=== PATIENT | female | born 1945 | race Caucasian/White ===

== ENCOUNTER 2017-02-10 17:58 | Emergency (ER) | payer MEDICARE, MEDICAID ==
[~2017-02-10] VITALS: Ht 172.7 cm; Wt 90.7 kg
[~2017-02-10 17:58] MED LIST: ALLO300T2 PO; ASPI-991 PO; CALC-513 PO; IBUP-1096 PO; LEVO25TA9 PO; LORA2TAB PO; VALS160T2 PO
[2017-02-10] MEDS ORDERED: [UNRECOGNIZED DRUG - OTHER] PO (18:21)
[2017-02-10] MEDS ORDERED: CALC-1152 PO (18:21)
[2017-02-10] MEDS ORDERED: LOSA50TA21 PO (18:21)
[2017-02-10] MEDS ORDERED: NEBI10TA2 PO (18:21)
[2017-02-10] MEDS ORDERED: ATOR10TA PO (18:21)
[2017-02-10] MEDS ORDERED: METO-302 PO (18:21)
[2017-02-10] MEDS ORDERED: RANI150C4 PO (18:21)
--- NOTE | 2017-02-10 18:41 | NUR ---
pt is in room #2a. dr kiser evaluated the pt.
[2017-02-10] MEDS ORDERED: BENZONATATE 100 MG CAPSULE PO ONE (18:45)
[2017-02-10] MEDS ORDERED: ALBUTEROL SULFATE 2.5 MG/3 ML NEBU NEB ONE (18:45)
[2017-02-10] MEDS ORDERED: ALBUTEROL SULFATE 2.5 MG/3 ML NEBU ONE (19:02)
[2017-02-10] MEDS ORDERED: BENZONATATE 100 MG CAPSULE ONE (19:03)
--- NOTE | 2017-02-10 19:10 | NUR ---
Received report from FAUSTINA Childress. Assumed care of pt at this time. Pt finished breathing treatment. Sitting in position of comfort for self. Resp even and unlabored. Pt sts she is feeling slightly better. Pt denies pain at this time. Family at bedside.
--- NOTE | 2017-02-10 20:03 | NUR ---
Pt denies SOB, pt sts she is feeling better. Pt stable for discharge per MD. Pt and family given ACI. Both verbalized understanding of dc instructions. Pt ambulated out of er with steady gait
[2017-02-10 20:04] VITALS: BP 115/62
== END 2017-02-10 20:04 | disposition home or self-care (01) ==
LOC: ER 18:02
DX: J20.9 Acute bronchitis, unspecified (principal); I10 Essential (primary) hypertension; E78.5 Hyperlipidemia, unspecified; K21.9 Gastro-esophageal reflux disease without esophagitis; F41.9 Anxiety disorder, unspecified; Z79.82 Long term (current) use of aspirin
CPT/HCPCS: 71010; A4663

== ENCOUNTER 2020-10-14 11:16 | Inpatient (IN) | payer MEDICARE, OTHER ==
[~2020-10-14] VITALS: Ht 160 cm; Wt 97.5 kg
[~2020-10-14 11:16] MED LIST changes: -ASPI-991 PO; +ATOR10TA PO; +CALC-1194 PO; -IBUP-1096 PO; -LORA2TAB PO; +LOSA50TA39 PO; +METO-356 PO; +NEBI10TA2 PO; +RANI150C4 PO; -VALS160T2 PO; +[UNRECOGNIZED DRUG - OTHER] PO
--- NOTE | 2020-10-14 11:28 | NUR ---
PT IS IN ROOM #1B. DR BOOGIE EVALUATED THE PT.
[2020-10-14] MEDS ORDERED: DEXAMETHASONE SOD PHOSPHATE 4 MG INJ IV ONE (11:45)
[2020-10-14 11:49] LABS: BASOPHILS % (AUTO) 0.4 % (0.0-2.0); EOSINOPHILS # (AUTO) 0.1 K/uL (0.0-0.7); EOSINOPHILS % (AUTO) 0.8 % (0.0-7.0); HEMATOCRIT 41.8 % (31.2-41.9); HEMOGLOBIN 13.9 g/dL (10.9-14.3); LYMPHOCYTES # (AUTO) 1.6 K/uL (20.0-40.0); LYMPHOCYTES % (AUTO) 18.5 % (20.5-51.5); MEAN CORPUSCULAR HGB CONC 33 g/dL (32.3-35.6); MEAN CORPUSCULAR VOLUME 90.2 fL (75.5-95.3); MONOCYTES # (AUTO) 1.2 K/uL (2.0-10.0); MONOCYTES % (AUTO) 13.6 % (0.0-11.0); NEUTROPHILS # (AUTO) 5.8 K/uL (1.8-8.9); NEUTROPHILS % (AUTO) 66.7 % (38.5-71.5); PLATELET COUNT (AUTO) 342 K/uL (179-408); RED BLOOD CELL COUNT(AUTO) 4.64 MIL/uL (3.63-4.92); WHITE BLOOD COUNT (AUTO) 8.6 K/uL (3.8-11.8)
[2020-10-14 11:57] LABS: CARBON DIOXIDE 24 mmol/L (21-32); CHLORIDE 100 mmol/L (98-107); CREATININE 1.7 mg/dL (0.6-1.3); GLUCOSE 144 mg/dL (74-106); POTASSIUM 4.2 mmol/L (3.5-5.1); UREA NITROGEN, BLOOD 32 mg/dL (7-18)
[2020-10-14] MEDS ORDERED: DEXAMETHASONE SOD PHOSPHATE 10 MG INJ ONE (12:13)
[2020-10-14 12:14] LABS: ALANINE AMINOTRANSFERASE 23 U/L (14-59); ALKALINE PHOSPHATASE 42 U/L (50-136); ASPARTATE AMINOTRANSFERASE 30 U/L (15-37); BILIRUBIN,TOTAL 0.5 mg/dL (0.2-1.0); FERRITIN 429 ng/mL (8-252); LACTATE DEHYDROGENASE 280 U/L (81-234)
[2020-10-14 12:26] LABS: CREATINE KINASE, TOTAL 26 U/L (26-192)
[2020-10-14] MEDS ORDERED: CEFTRIAXONE 1 G in IV DEXTROSE 5% 50 ML IV ONE (12:30)
[2020-10-14] MEDS ORDERED: AZITHROMYCIN IV 500 MG in IV DEXTROSE 5% 250 ML IV ONE (12:30)
[2020-10-14] MEDS ORDERED: CEFTRIAXONE /D5W 50ML IVPB **ER PYXIS IV ONE (12:37)
[2020-10-14] MEDS ORDERED: AZITHROMYCIN 500MG/ D5W 250ML IVPB **ER PYXIS ONLY IV ONE (12:37)
--- NOTE | 2020-10-14 14:00 | NUR ---
Received report from ER nurse on pt. Pt transferring to room 320 Addendum: 10/14/20 at 3334 by EDEN ANN RN report received at [id number]*
[2020-10-14] MEDS ORDERED: ALBUTEROL SULFATE 8 GM HFA.AER.AD IH PRN (15:15)
[2020-10-14] MEDS ORDERED: hydrALAZINE HCL 25 MG TABLET PO PRN (15:15)
[2020-10-14] MEDS ORDERED: ONDANSETRON 4 MG/2 ML VIAL IV PRN (15:15)
[2020-10-14] MEDS ORDERED: MORPHINE SULFATE 2 MG/1 ML DISP.SYRIN IV PRN (15:15)
[2020-10-14] MEDS ORDERED: ACETAMINOPHEN 325 MG TABLET PO PRN (15:15)
[2020-10-14 16:08] VITALS: BP 130/73
--- NOTE | 2020-10-14 16:15 | NUR ---
received pt from ER. Pt primary language is Farsi, pt does understand some [place], Daughter (Cody) number posted in room if needed. Pt on 3L O2 via NC saturating at 97%, no signs of distress at this time, no pain reported. Pt has IV access on the left AC, intact and patent. Pt is awake alert and oriented x4. all belongings accounted for and logged in the chart. Pt in bed resting, bed in low and locked position, safety and isolation precautions in place. Will endorse to oncoming nurse.
[2020-10-14] MEDS: IV NS 1000 ML 1,000 ML IV PRN ×2 (19:08→19:11)
[2020-10-14 19:52] VITALS: BP 104/51
[2020-10-14] MEDS: DOCUSATE SODIUM 100 MG CAPSULE PO SCH (21:00)
[2020-10-14] MEDS: ATORVASTATIN 10 MG TABLET PO SCH (21:00)
--- NOTE | 2020-10-14 22:45 | NUR ---
Patient awake ALOx4 farsi speaking with O2 at 3 LPM via NC saturating at 94%.No s/s of distress noted.IV on left Ac with NS running at 60ml/hr.Tolerated well.Due meds given. Patient c/o unable to sleep ,requesting for sleeping med.Dr Lynch made aware with new order given noted and carried out. Restoril 15 mg given. Maintain isolation precaution for covid.Call light with in reach. Will continue to monitor
[2020-10-14] MEDS: TEMAZEPAM 15 MG CAPSULE PO SCH (22:55)
[2020-10-15 00:50] VITALS: BP 97/52
[2020-10-15 04:17] VITALS: BP 107/56
[2020-10-15] MEDS: PANTOPRAZOLE SODIUM 40 MG TABLET.DR PO SCH (06:04)
[2020-10-15] MEDS: LEVOTHYROXINE SODIUM 25 MCG TABLET PO SCH (06:30)
[2020-10-15 07:23] LABS: ALANINE AMINOTRANSFERASE 17 U/L (14-59); ALKALINE PHOSPHATASE 39 U/L (50-136); ASPARTATE AMINOTRANSFERASE 23 U/L (15-37); BILIRUBIN,TOTAL 0.4 mg/dL (0.2-1.0); CARBON DIOXIDE 24 mmol/L (21-32); CHLORIDE 103 mmol/L (98-107); CHOLESTEROL 115 mg/dL (<200); CREATININE 1.6 mg/dL (0.6-1.3); GLUCOSE 227 mg/dL (74-106); HDL CHOLESTEROL 31 mg/dL (40-60); MAGNESIUM 2.2 mg/dL (1.8-2.4); PHOSPHOROUS 3.6 mg/dL (2.5-4.9); TOTAL PROTEIN, SERUM 7.2 g/dL (6.4-8.2); TRIGLYCERIDES 44 MG/DL (30-150); URIC ACID 9.5 mg/dL (2.6-6.0)
--- NOTE | 2020-10-15 07:30 | NUR ---
received report on pt, pt in bed resting. awake alert and oriented x4, pt is Farsi speaking, NSR on tele monitor, 3L O2 via NC saturating at 94%. bed in low fowlers position, call light within reach. IV access on the left AC IVF NS infusing at 60cc. Bed in low and locked position, safety and isolation precautions in place. Will continue to monitor.
[2020-10-15 07:52] LABS: UREA NITROGEN, BLOOD 38 mg/dL (7-18)
[2020-10-15 08:58] LABS: THYROID STIMULATING HORMONE 0.675 mIU/mL (0.358-3.740)
[2020-10-15] MEDS ORDERED: LOSARTAN POTASSIUM 50 MG TABLET PO SCH (09:00)
[2020-10-15] MEDS ORDERED: METOPROLOL SUCCINATE XL 25 MG TAB.SR.24H PO SCH (09:00)
[2020-10-15] MEDS ORDERED: DEXAMETHASONE SOD PHOSPHATE 4 MG INJ IV SCH (09:00)
[2020-10-15] MEDS ORDERED: ALLOPURINOL 300 MG TABLET PO SCH (09:00)
[2020-10-15 09:46] LABS: BASOPHILS # (AUTO) 0.1 K/uL (0.0-8.0); BASOPHILS % (AUTO) 0.7 % (0.0-2.0); HEMATOCRIT 38.9 % (31.2-41.9); HEMOGLOBIN 12.9 g/dL (10.9-14.3); LYMPHOCYTES # (AUTO) 1.6 K/uL (20.0-40.0); LYMPHOCYTES % (AUTO) 19.8 % (20.5-51.5); MEAN CORPUSCULAR HEMOGLOBIN 30.1 uug (24.7-32.8); MEAN CORPUSCULAR HGB CONC 33 g/dL (32.3-35.6); MEAN CORPUSCULAR VOLUME 91.1 fL (75.5-95.3); MONOCYTES # (AUTO) 0.9 K/uL (2.0-10.0); MONOCYTES % (AUTO) 11.1 % (0.0-11.0); NEUTROPHILS # (AUTO) 5.4 K/uL (1.8-8.9); NEUTROPHILS % (AUTO) 68.4 % (38.5-71.5); PLATELET COUNT (AUTO) 312 K/uL (179-408); RED BLOOD CELL COUNT(AUTO) 4.27 MIL/uL (3.63-4.92); WHITE BLOOD COUNT (AUTO) 7.9 K/uL (3.8-11.8)
[2020-10-15] MEDS ORDERED: REMDESIVIR (CHARGED) 200 MG in IV NORMAL SALINE 210 ML IV ONE (10:00)
[2020-10-15] MEDS: CHOLECALCIFEROL 1,000 UNIT TABLET PO SCH (10:34)
[2020-10-15] MEDS: CALCIUM CITRA-VITAMIN D 315 MG-250 UNITS TABLET PO SCH (10:34)
[2020-10-15] MEDS: ASCORBIC ACID 500 MG TABLET PO SCH (10:34)
[2020-10-15] MEDS: DEXAMETHASONE SOD PHOSPHATE 4 MG INJ IV SCH (10:34)
[2020-10-15] MEDS: ENOXAPARIN SODIUM 30 MG/0.3 ML DISP.SYRIN SUBCUT SCH (10:43)
[2020-10-15 11:40] VITALS: BP 115/56
[2020-10-15] MEDS ORDERED: DEXTROSE 50% 50 ML DISP.SYRIN IV PRN (12:30)
[2020-10-15] MEDS: AZITHROMYCIN IV 500 MG in IV DEXTROSE 5% 250 ML IV SCH (13:48)
[2020-10-15] MEDS: CEFTRIAXONE 1 G in IV DEXTROSE 5% 50 ML IV SCH (15:07)
[2020-10-15 16:00] VITALS: BP 112/56
--- NOTE | 2020-10-15 17:00 | NUR ---
Pt glucose reading is 257, pt refused insulin.
[2020-10-15] MEDS: BLOOD SUGAR DIAGNOSTIC 1 EACH STRIP VI SCH ×2 (17:17→21:14)
[2020-10-15] MEDS: INSULIN REGULAR, HUMAN 300 UNIT/3 ML VIAL SQ PRN ×2 (17:21→21:22)
[2020-10-15] MEDS: IV NS 1000 ML 1,000 ML IV PRN (17:44)
--- NOTE | 2020-10-15 19:08 | NUR ---
pt awake alert and oriented x4, Farsi speaking. Bed in semi fowlers position, mediations given as ordered. NSR on tele monitor, pt on 3L O2 via NC saturating at 94%, no signs of distress noted, no pain reported at this time. IV access on the left AC, IVF infusing NS at 60cc. Bed in low and locked position, call light within reach, safety, and isolation precautions in place. Will endorse to oncoming nurse.
[2020-10-15] MEDS: TEMAZEPAM 15 MG CAPSULE PO SCH (21:10)
[2020-10-15] MEDS: ATORVASTATIN 10 MG TABLET PO SCH (21:10)
[2020-10-15] MEDS: DOCUSATE SODIUM 100 MG CAPSULE PO SCH (21:11)
[2020-10-15 21:52] VITALS: BP 113/48
[2020-10-16 01:11] VITALS: BP 98/47
[2020-10-16 06:13] VITALS: BP 109/47
[2020-10-16] MEDS: PANTOPRAZOLE SODIUM 40 MG TABLET.DR PO SCH (06:54)
[2020-10-16] MEDS: LEVOTHYROXINE SODIUM 25 MCG TABLET PO SCH (06:54)
--- NOTE | 2020-10-16 07:03 | NUR ---
End of Shift: Patient slept most of the night. AOx4, Farsi speaking. Bed in semi fowlers position, mediations given as ordered, pt refused their insulin injection during the shift. NSR on tele monitor, pt on 3L O2 via NC saturating at 100%, no signs of distress noted, no pain reported at this time. IV access on the right forearm intact, IVF infusing NS at 60cc. Bed in low and locked position, call light within reach, safety, and isolation precautions in place. Will endorse to the day shift nurse.
[2020-10-16 07:26] LABS: BASOPHILS % (AUTO) 0.3 % (0.0-2.0); HEMATOCRIT 36.5 % (31.2-41.9); HEMOGLOBIN 12.2 g/dL (10.9-14.3); LYMPHOCYTES # (AUTO) 1.6 K/uL (20.0-40.0); LYMPHOCYTES % (AUTO) 12.8 % (20.5-51.5); MEAN CORPUSCULAR HEMOGLOBIN 30.8 uug (24.7-32.8); MEAN CORPUSCULAR HGB CONC 34 g/dL (32.3-35.6); MONOCYTES # (AUTO) 0.9 K/uL (2.0-10.0); MONOCYTES % (AUTO) 7.7 % (0.0-11.0); NEUTROPHILS # (AUTO) 9.7 K/uL (1.8-8.9); NEUTROPHILS % (AUTO) 79.2 % (38.5-71.5); PLATELET COUNT (AUTO) 308 K/uL (179-408); RED BLOOD CELL COUNT(AUTO) 3.97 MIL/uL (3.63-4.92); WHITE BLOOD COUNT (AUTO) 12.2 K/uL (3.8-11.8)
[2020-10-16] MEDS: BLOOD SUGAR DIAGNOSTIC 1 EACH STRIP VI SCH ×4 (07:30→21:01)
[2020-10-16 07:57] LABS: CARBON DIOXIDE 25 mmol/L (21-32); CHLORIDE 104 mmol/L (98-107); CREATININE 1.8 mg/dL (0.6-1.3); GLUCOSE 184 mg/dL (74-106); MAGNESIUM 1.9 mg/dL (1.8-2.4); POTASSIUM 4.6 mmol/L (3.5-5.1); UREA NITROGEN, BLOOD 42 mg/dL (7-18)
--- NOTE | 2020-10-16 08:00 | NUR ---
pt blood sugar is 171 pt refused the insulin sliding scale per orders made aware
[2020-10-16] MEDS: CHOLECALCIFEROL 1,000 UNIT TABLET PO SCH (08:32)
[2020-10-16] MEDS: ASCORBIC ACID 500 MG TABLET PO SCH (08:32)
[2020-10-16] MEDS: CALCIUM CITRA-VITAMIN D 315 MG-250 UNITS TABLET PO SCH (08:32)
[2020-10-16] MEDS: ENOXAPARIN SODIUM 30 MG/0.3 ML DISP.SYRIN SUBCUT SCH (08:34)
[2020-10-16] MEDS: DEXAMETHASONE SOD PHOSPHATE 4 MG INJ IV SCH (08:46)
[2020-10-16 08:55] LABS: BILIRUBIN,DIRECT 0.1 mg/dL (0.0-0.2); BILIRUBIN,TOTAL 0.2 mg/dL (0.2-1.0); TOTAL PROTEIN, SERUM 6.9 g/dL (6.4-8.2)
[2020-10-16] MEDS: REMDESIVIR (CHARGED) 100 MG in IV NORMAL SALINE 100 ML IV SCH (10:06)
[2020-10-16] MEDS: IV NS 1000 ML 1,000 ML IV PRN (10:17)
[2020-10-16] MEDS: INSULIN REGULAR, HUMAN 300 UNIT/3 ML VIAL SQ PRN ×3 (11:17→21:03)
[2020-10-16 11:59] VITALS: BP 116/64
[2020-10-16] MEDS: AZITHROMYCIN IV 500 MG in IV DEXTROSE 5% 250 ML IV SCH (12:22)
[2020-10-16] MEDS: CEFTRIAXONE 1 G in IV DEXTROSE 5% 50 ML IV SCH (13:12)
[2020-10-16 16:00] VITALS: BP 107/62
[2020-10-16 18:19] LABS: *BILIRUBIN,URIN NEGATIVE (NEGATIVE); *BLOOD, URINE NEGATIVE (NEGATIVE); *CLARITY,URINE CLEAR (CLEAR); *COLOR,URINE YELLOW (YELLOW); *KETONES,URINE NEGATIVE (NEGATIVE); *UROBILINOGEN,URINE 0.2 E.U./dl (NORMAL); LEUKOCYTE ESTERASE ,URINE NEGATIVE (NEGATIVE); NITRITE, URINE NEGATIVE (NEGATIVE); PH,URINE 5.5 (5.0-8.0); UGLUCOSE NEGATIVE (NEGATIVE)
[2020-10-16 18:26] LABS: BACTERIA,URINE FEW /HPF (NONE SEEN); RBC,URINE 0-3 /HPF (0-3); SQUAMOUS EPITHELIAL CELL,UR FEW /HPF (NONE SEEN); YEAST,URINE FEW /HPF (NONE SEEN)
[2020-10-16 18:30] LABS: *CREATININE,URINE 93.5 mg/dL (30-125); *URINE TOTAL PROTEIN RANDOM 38.2 mg/dL (<150/24HR)
[2020-10-16 20:03] VITALS: BP 131/71
[2020-10-16] MEDS: ATORVASTATIN 10 MG TABLET PO SCH (20:56)
[2020-10-16] MEDS: TEMAZEPAM 15 MG CAPSULE PO SCH (20:56)
[2020-10-16] MEDS: DOCUSATE SODIUM 100 MG CAPSULE PO SCH (20:56)
--- NOTE | 2020-10-16 21:20 | NUR ---
RECEIVED PATIENT AWAKE. NOT IN DISTRESS AND NOTED WITH OXYGEN VIA NASAL CANNULA AT 2LPM. NO C/O PAIN MADE BY HER. MAINLY FARSI SPEAKING BUT ABLE TO MAKE NEEDS KNOWN. BLOOD SUGAR CHECK AND COVERAGE GIVEN. IV LINE ON RFA INTACT WITH NS RUNNING AT 50CC/HR. SAFETY AND ISOLATION PRECAUTION IN PLACE.CALL LIGHT IN HAND.WILL CONTINUE WITH MONITORING.
[2020-10-17 00:15] VITALS: BP 137/67
[2020-10-17 04:42] VITALS: BP 128/73
[2020-10-17] MEDS: BLOOD SUGAR DIAGNOSTIC 1 EACH STRIP VI SCH ×4 (06:31→20:21)
[2020-10-17] MEDS: PANTOPRAZOLE SODIUM 40 MG TABLET.DR PO SCH (06:31)
[2020-10-17] MEDS: LEVOTHYROXINE SODIUM 25 MCG TABLET PO SCH (06:31)
[2020-10-17 06:46] LABS: BASOPHILS # (AUTO) 0.1 K/uL (0.0-8.0); BASOPHILS % (AUTO) 0.7 % (0.0-2.0); EOSINOPHILS % (AUTO) 0.2 % (0.0-7.0); HEMATOCRIT 37.1 % (31.2-41.9); HEMOGLOBIN 12.2 g/dL (10.9-14.3); LYMPHOCYTES # (AUTO) 1.7 K/uL (20.0-40.0); LYMPHOCYTES % (AUTO) 15.2 % (20.5-51.5); MEAN CORPUSCULAR HEMOGLOBIN 30.3 uug (24.7-32.8); MEAN CORPUSCULAR HGB CONC 33 g/dL (32.3-35.6); MEAN CORPUSCULAR VOLUME 92.1 fL (75.5-95.3); MONOCYTES # (AUTO) 1.3 K/uL (2.0-10.0); MONOCYTES % (AUTO) 12.1 % (0.0-11.0); NEUTROPHILS # (AUTO) 7.9 K/uL (1.8-8.9); NEUTROPHILS % (AUTO) 71.8 % (38.5-71.5); PLATELET COUNT (AUTO) 322 K/uL (179-408); RED BLOOD CELL COUNT(AUTO) 4.03 MIL/uL (3.63-4.92); WHITE BLOOD COUNT (AUTO) 11.1 K/uL (3.8-11.8)
--- NOTE | 2020-10-17 06:58 | NUR ---
PATIENT IN BED AND SLEPT WELL THROUGH THE NIGHT.ABLE TO SELF TURN. ALL DUE MEDICATIONS GIVEN. SAFETY AND ISOLATION PRECAUTIONS OBSERVED. WILL CONTINUE WITH POC.
[2020-10-17 07:20] LABS: ALANINE AMINOTRANSFERASE 25 U/L (14-59); ALKALINE PHOSPHATASE 42 U/L (50-136); ASPARTATE AMINOTRANSFERASE 25 U/L (15-37); BILIRUBIN,DIRECT 0.1 mg/dL (0.0-0.2); BILIRUBIN,TOTAL 0.2 mg/dL (0.2-1.0); CHLORIDE 104 mmol/L (98-107); CREATININE 1.6 mg/dL (0.6-1.3); GLUCOSE 129 mg/dL (74-106); LACTATE DEHYDROGENASE 293 U/L (81-234); MAGNESIUM 1.9 mg/dL (1.8-2.4); PHOSPHOROUS 3.5 mg/dL (2.5-4.9); POTASSIUM 4.5 mmol/L (3.5-5.1); TOTAL PROTEIN, SERUM 6.8 g/dL (6.4-8.2); UREA NITROGEN, BLOOD 39 mg/dL (7-18)
[2020-10-17 07:24] LABS: CARBON DIOXIDE 22 mmol/L (21-32)
--- NOTE | 2020-10-17 08:00 | NUR ---
AWAKE ALERT AND ORIENTED X3 NO SS OF PAIN OR SOB WITH 2L O2 NC SATURATING 94%, DENIES PAIN. WILL CONTINUE PLAN OF CARE FOR IV ANTIBIOTIC. NO ALLERGY REACTION NOTED
[2020-10-17] MEDS: CALCIUM CITRA-VITAMIN D 315 MG-250 UNITS TABLET PO SCH (08:40)
[2020-10-17] MEDS: ASCORBIC ACID 500 MG TABLET PO SCH (08:41)
[2020-10-17] MEDS: GLIMEPIRIDE 2 MG TABLET PO SCH (08:41)
[2020-10-17] MEDS: CHOLECALCIFEROL 1,000 UNIT TABLET PO SCH (08:41)
[2020-10-17] MEDS: ENOXAPARIN SODIUM 30 MG/0.3 ML DISP.SYRIN SUBCUT SCH (08:42)
[2020-10-17] MEDS: DEXAMETHASONE SOD PHOSPHATE 4 MG INJ IV SCH (08:42)
[2020-10-17] MEDS: REMDESIVIR (CHARGED) 100 MG in IV NORMAL SALINE 100 ML IV SCH (09:11)
[2020-10-17 11:32] VITALS: BP 123/55
[2020-10-17] MEDS: INSULIN REGULAR, HUMAN 300 UNIT/3 ML VIAL SQ PRN ×3 (12:24→20:32)
[2020-10-17] MEDS: IV NS 1000 ML 1,000 ML IV PRN (12:29)
--- NOTE | 2020-10-17 13:00 | NUR ---
SEEN BY DR KENNEDY FOR PULMONARY FOLLOW-UP SEE NOTES
--- NOTE | 2020-10-17 14:46 | NUR ---
midline insertion done at bedside on the right upper arm #18
[2020-10-17 16:00] VITALS: BP 116/51
[2020-10-17] MEDS: TEMAZEPAM 15 MG CAPSULE PO SCH (20:09)
[2020-10-17] MEDS: DOCUSATE SODIUM 100 MG CAPSULE PO SCH (20:09)
[2020-10-17] MEDS: ATORVASTATIN 10 MG TABLET PO SCH (20:09)
[2020-10-17 20:12] VITALS: BP 108/51
[2020-10-18 00:18] VITALS: BP 108/53
[2020-10-18 05:04] VITALS: BP 108/48
[2020-10-18] MEDS: PANTOPRAZOLE SODIUM 40 MG TABLET.DR PO SCH (06:37)
[2020-10-18] MEDS: LEVOTHYROXINE SODIUM 25 MCG TABLET PO SCH (06:37)
[2020-10-18] MEDS: BLOOD SUGAR DIAGNOSTIC 1 EACH STRIP VI SCH ×4 (06:56→20:39)
[2020-10-18] MEDS: IV NS 1000 ML 1,000 ML IV PRN (06:56)
[2020-10-18 07:05] LABS: BASOPHILS # (AUTO) 0.1 K/uL (0.0-8.0); BASOPHILS % (AUTO) 0.6 % (0.0-2.0); EOSINOPHILS % (AUTO) 0.1 % (0.0-7.0); HEMATOCRIT 35.4 % (31.2-41.9); HEMOGLOBIN 11.8 g/dL (10.9-14.3); LYMPHOCYTES # (AUTO) 2.2 K/uL (20.0-40.0); LYMPHOCYTES % (AUTO) 19.1 % (20.5-51.5); MEAN CORPUSCULAR HEMOGLOBIN 30.6 uug (24.7-32.8); MEAN CORPUSCULAR HGB CONC 33 g/dL (32.3-35.6); MEAN CORPUSCULAR VOLUME 92.2 fL (75.5-95.3); MONOCYTES # (AUTO) 1.6 K/uL (2.0-10.0); MONOCYTES % (AUTO) 13.4 % (0.0-11.0); NEUTROPHILS # (AUTO) 7.7 K/uL (1.8-8.9); NEUTROPHILS % (AUTO) 66.8 % (38.5-71.5); PLATELET COUNT (AUTO) 328 K/uL (179-408); RED BLOOD CELL COUNT(AUTO) 3.84 MIL/uL (3.63-4.92); WHITE BLOOD COUNT (AUTO) 11.6 K/uL (3.8-11.8)
[2020-10-18] MEDS: GLIMEPIRIDE 2 MG TABLET PO SCH (07:21)
--- NOTE | 2020-10-18 07:22 | NUR ---
AMARYL NOT GIVEN DUE TO BLOOD SUGAR OF 62.
[2020-10-18 07:25] LABS: ALANINE AMINOTRANSFERASE 29 U/L (14-59); ALKALINE PHOSPHATASE 38 U/L (50-136); ASPARTATE AMINOTRANSFERASE 23 U/L (15-37); BILIRUBIN,DIRECT 0.1 mg/dL (0.0-0.2); BILIRUBIN,TOTAL 0.3 mg/dL (0.2-1.0); CARBON DIOXIDE 25 mmol/L (21-32); CHLORIDE 105 mmol/L (98-107); CREATININE 1.5 mg/dL (0.6-1.3); GLUCOSE 68 mg/dL (74-106); POTASSIUM 4.3 mmol/L (3.5-5.1); TOTAL PROTEIN, SERUM 6.4 g/dL (6.4-8.2)
[2020-10-18 07:38] LABS: UREA NITROGEN, BLOOD 37 mg/dL (7-18)
--- NOTE | 2020-10-18 08:00 | NUR ---
PATIENT AWAKE ALERT AND ORIENTED X3, COMMUNICATES WELL WITH STAFF IN ALL HER NEEDS, NO SS OF PAIN OR DISTRESS WITH 2L NC SATURATING 95%. NO SS O0F HYPOGLYCEMIA
[2020-10-18 08:04] LABS: MAGNESIUM 1.8 mg/dL (1.8-2.4); PHOSPHOROUS 3.9 mg/dL (2.5-4.9)
[2020-10-18] MEDS: DEXAMETHASONE SOD PHOSPHATE 4 MG INJ IV SCH (08:54)
[2020-10-18] MEDS: CHOLECALCIFEROL 1,000 UNIT TABLET PO SCH (08:55)
[2020-10-18] MEDS: ASCORBIC ACID 500 MG TABLET PO SCH (08:55)
[2020-10-18] MEDS: ENOXAPARIN SODIUM 30 MG/0.3 ML DISP.SYRIN SUBCUT SCH (08:55)
[2020-10-18] MEDS: CALCIUM CITRA-VITAMIN D 315 MG-250 UNITS TABLET PO SCH (08:55)
[2020-10-18] MEDS: REMDESIVIR (CHARGED) 100 MG in IV NORMAL SALINE 100 ML IV SCH (09:37)
[2020-10-18 11:35] VITALS: BP 135/64
[2020-10-18 11:50] LABS: LYMPHOCYTES % (MANUAL) 21 % (20-40); MONOCYTES % (MANUAL) 12 % (2-10); NEUTROPHILS % (MANUAL) 67 % (42-75)
--- NOTE | 2020-10-18 14:51 | NUR ---
SEEN BY DR MILAN PLAN IS TO DISCHARGE PATIENT AFTER LAST DOSE OF ANTIBIOTIC
[2020-10-18 16:00] VITALS: BP 149/83
[2020-10-18] MEDS: INSULIN REGULAR, HUMAN 300 UNIT/3 ML VIAL SQ PRN ×2 (17:07→20:41)
[2020-10-18 20:16] VITALS: BP 118/60
[2020-10-18] MEDS: DOCUSATE SODIUM 100 MG CAPSULE PO SCH (20:30)
[2020-10-18] MEDS: ATORVASTATIN 10 MG TABLET PO SCH (20:30)
[2020-10-18] MEDS: TEMAZEPAM 15 MG CAPSULE PO SCH (21:42)
--- NOTE | 2020-10-18 22:00 | NUR ---
PATIENT ALERT ORIENTED, NO SOB NO CHEST PAIN, PATIENT AMBULATORY, BRP, CALL LIGHT WITHIN REACH. PATIENT COOPERATIVE WITH CARE, NO S/S OF HYPO/HYPERGYLCEMIA NOTED. AFEBRILE, CONT TO MONITOR.
[2020-10-19] MEDS: IV NS 1000 ML 1,000 ML IV PRN ×2 (02:37→22:13)
[2020-10-19 04:12] VITALS: BP 103/41
[2020-10-19] MEDS: PANTOPRAZOLE SODIUM 40 MG TABLET.DR PO SCH (06:29)
[2020-10-19] MEDS: LEVOTHYROXINE SODIUM 25 MCG TABLET PO SCH (06:29)
[2020-10-19] MEDS: BLOOD SUGAR DIAGNOSTIC 1 EACH STRIP VI SCH ×4 (06:30→20:57)
--- NOTE | 2020-10-19 07:03 | NUR ---
PATIENT ALERT ORIENTED, NO SOB NO CHEST PAIN. PATIENT REMAINS ON DROPLET PRECAUTION, AFEBRILE, CONT TO MONITOR BLOOD SUGAR, PATIENT BRP CALL LIGHT WITHIN REACH. CONT TO MONITOR.
--- NOTE | 2020-10-19 07:30 | NUR ---
Received patient awake, alert and oriented times 4. No sign of respiratory distress noted. Patient is currently on room air. Skin is intact. Safety precautions are in place. Will continue to monitor.
[2020-10-19 07:34] LABS: BASOPHILS # (AUTO) 0.1 K/uL (0.0-8.0); BASOPHILS % (AUTO) 0.8 % (0.0-2.0); EOSINOPHILS % (AUTO) 0.3 % (0.0-7.0); HEMATOCRIT 36.2 % (31.2-41.9); LYMPHOCYTES # (AUTO) 2.4 K/uL (20.0-40.0); LYMPHOCYTES % (AUTO) 19.7 % (20.5-51.5); MEAN CORPUSCULAR HGB CONC 33 g/dL (32.3-35.6); MEAN CORPUSCULAR VOLUME 93.7 fL (75.5-95.3); MONOCYTES # (AUTO) 1.5 K/uL (2.0-10.0); MONOCYTES % (AUTO) 12.4 % (0.0-11.0); NEUTROPHILS # (AUTO) 8.2 K/uL (1.8-8.9); NEUTROPHILS % (AUTO) 66.8 % (38.5-71.5); PLATELET COUNT (AUTO) 316 K/uL (179-408); RED BLOOD CELL COUNT(AUTO) 3.86 MIL/uL (3.63-4.92); WHITE BLOOD COUNT (AUTO) 12.3 K/uL (3.8-11.8)
[2020-10-19 07:46] LABS: BILIRUBIN,DIRECT 0.1 mg/dL (0.0-0.2); CARBON DIOXIDE 22 mmol/L (21-32); CHLORIDE 105 mmol/L (98-107); CREATININE 1.5 mg/dL (0.6-1.3); GLUCOSE 97 mg/dL (74-106); POTASSIUM 4.5 mmol/L (3.5-5.1); UREA NITROGEN, BLOOD 35 mg/dL (7-18)
[2020-10-19 08:03] LABS: ALANINE AMINOTRANSFERASE 30 U/L (14-59); ALKALINE PHOSPHATASE 44 U/L (50-136); ASPARTATE AMINOTRANSFERASE 22 U/L (15-37); BILIRUBIN,TOTAL 0.3 mg/dL (0.2-1.0); TOTAL PROTEIN, SERUM 6.2 g/dL (6.4-8.2)
[2020-10-19] MEDS: GLIMEPIRIDE 2 MG TABLET PO SCH (08:45)
[2020-10-19] MEDS: ASCORBIC ACID 500 MG TABLET PO SCH (08:45)
[2020-10-19] MEDS: CHOLECALCIFEROL 1,000 UNIT TABLET PO SCH (08:45)
[2020-10-19] MEDS: CALCIUM CITRA-VITAMIN D 315 MG-250 UNITS TABLET PO SCH (08:45)
[2020-10-19] MEDS: DEXAMETHASONE SOD PHOSPHATE 4 MG INJ IV SCH (08:46)
[2020-10-19] MEDS: ENOXAPARIN SODIUM 30 MG/0.3 ML DISP.SYRIN SUBCUT SCH (08:47)
[2020-10-19] MEDS ORDERED: GLIM2TAB PO (11:01)
[2020-10-19] MEDS: REMDESIVIR (CHARGED) 100 MG in IV NORMAL SALINE 100 ML IV SCH (11:04)
--- NOTE | 2020-10-19 11:16 | NUR ---
Patient just began final bag of Remdisivir. Will continue to monitor.
[2020-10-19 12:00] VITALS: BP 142/64
[2020-10-19] MEDS: INSULIN REGULAR, HUMAN 300 UNIT/3 ML VIAL SQ PRN ×3 (12:31→20:55)
[2020-10-19 16:08] VITALS: BP 130/73
[2020-10-19 20:20] VITALS: BP 123/64
[2020-10-19] MEDS: DOCUSATE SODIUM 100 MG CAPSULE PO SCH (20:46)
[2020-10-19] MEDS: ATORVASTATIN 10 MG TABLET PO SCH (20:46)
[2020-10-19] MEDS: TEMAZEPAM 15 MG CAPSULE PO SCH (20:47)
[2020-10-20] MEDS: LEVOTHYROXINE SODIUM 25 MCG TABLET PO SCH (06:16)
[2020-10-20] MEDS: PANTOPRAZOLE SODIUM 40 MG TABLET.DR PO SCH (06:16)
[2020-10-20] MEDS: BLOOD SUGAR DIAGNOSTIC 1 EACH STRIP VI SCH ×2 (06:17→10:37)
[2020-10-20] MEDS: GLIMEPIRIDE 2 MG TABLET PO SCH (07:55)
[2020-10-20] MEDS: CHOLECALCIFEROL 1,000 UNIT TABLET PO SCH (07:56)
[2020-10-20] MEDS: ENOXAPARIN SODIUM 30 MG/0.3 ML DISP.SYRIN SUBCUT SCH (07:56)
[2020-10-20] MEDS: ASCORBIC ACID 500 MG TABLET PO SCH (07:56)
[2020-10-20] MEDS: CALCIUM CITRA-VITAMIN D 315 MG-250 UNITS TABLET PO SCH (07:56)
[2020-10-20] MEDS: DEXAMETHASONE SOD PHOSPHATE 4 MG INJ IV SCH (08:18)
[2020-10-20 11:57] VITALS: BP 132/67
--- NOTE | 2020-10-20 15:00 | NUR ---
dc orders received noted and carried out,dc heplock per md orders,dc instruction and education given to the pt,pt said she will follow up with her pcp .pt left the facility via private car in stable condition
== END 2020-10-20 15:00 | disposition home or self-care (01) | DRG 177 ==
LOC: ER 11:16 → TELE3 15:04 → MEDSURG3 10-18 11:20
PROVIDERS: ADMIT Internal Medicine
PROC: XW033E5 Introduction of Remdesivir Anti-infective into Peripheral Vein, Percutaneous Approach, New Technology Group 5 (ICD-10-PCS; principal; 2020-10-15)
PROC: 05H533Z Insertion of Infusion Device into Right Subclavian Vein, Percutaneous Approach (ICD-10-PCS; 2020-10-17)
PROC: B546ZZA Ultrasonography of Right Subclavian Vein, Guidance (ICD-10-PCS; 2020-10-17)
DX: U07.1 COVID-19 (principal); J12.82 Pneumonia due to coronavirus disease 2019; J96.01 Acute respiratory failure with hypoxia; N17.0 Acute kidney failure with tubular necrosis; D68.69 Other thrombophilia; E44.0 Moderate protein-calorie malnutrition; E22.2 Syndrome of inappropriate secretion of antidiuretic hormone; E78.5 Hyperlipidemia, unspecified; N18.9 Chronic kidney disease, unspecified; I13.10 Hypertensive heart and chronic kidney disease without heart failure, with stage 1 through stage 4 chronic kidney disease, or unspecified chronic kidney disease; E03.9 Hypothyroidism, unspecified; F41.9 Anxiety disorder, unspecified; K21.9 Gastro-esophageal reflux disease without esophagitis; E11.22 Type 2 diabetes mellitus with diabetic chronic kidney disease; Z68.38 Body mass index [BMI] 38.0-38.9, adult; M89.9 Disorder of bone, unspecified; Z96.652 Presence of left artificial knee joint
CPT/HCPCS: 36415; 70030-TC; 71045; 76770; 83605; 83615; 83735; 84100; 84156; 84300; 84443; 84550; 85025; 85610; 85730; 86140; 87040; 87086; 93005; A4663; G0378; J0456; J0696; J1100; J1650; J1815; J3490; J7030; J7050; J7060

== ENCOUNTER 2024-04-05 19:17 | Inpatient (IN) | payer MEDICARE, OTHER ==
[~2024-04-05] VITALS: Ht 167.6 cm; Wt 90.7 kg
[~2024-04-05 19:17] MED LIST changes: -CALC-513 PO; +GLIM2TAB PO
[2024-04-05] MEDS: ACETAMINOPHEN 500 MG TABLET PO ONE (20:15)
[2024-04-05 20:26] LABS: BASOPHILS # (AUTO) 0.1 K/UL (0.0-0.2); BASOPHILS % (AUTO) 0.5 % (0.0-2.0); EOSINOPHILS # (AUTO) 0.1 K/uL (0.0-0.7); EOSINOPHILS % (AUTO) 0.8 % (0.0-7.0); HEMATOCRIT 33.2 % (31.2-41.9); HEMOGLOBIN 10.6 g/dL (10.9-14.3); LYMPHOCYTES # (AUTO) 2.5 K/uL (0.8-4.8); LYMPHOCYTES % (AUTO) 17.3 % (20.5-51.5); MEAN CORPUSCULAR HEMOGLOBIN 27.8 uug (24.7-32.8); MEAN CORPUSCULAR HGB CONC 32 g/dL (32.3-35.6); MEAN CORPUSCULAR VOLUME 87.1 fL (75.5-95.3); MONOCYTES # (AUTO) 1.7 K/uL (0.1-1.30); MONOCYTES % (AUTO) 11.7 % (0.0-11.0); NEUTROPHILS # (AUTO) 10.1 K/uL (1.8-8.9); NEUTROPHILS % (AUTO) 69.7 % (38.5-71.5); PLATELET COUNT (AUTO) 388 K/uL (179-408); RED BLOOD CELL COUNT(AUTO) 3.81 MIL/uL (3.63-4.92); RED CELL DISTRIBUTION WIDTH 16.7 % (12.3-17.7); WHITE BLOOD COUNT (AUTO) 14.5 K/uL (3.8-11.8)
[2024-04-05 20:42] LABS: DIFFERENTIAL COMMENT 1
[2024-04-05 20:44] LABS: *BILIRUBIN,URIN 1+ (NEGATIVE); *BLOOD, URINE NEGATIVE (NEGATIVE); *CLARITY,URINE CLEAR (CLEAR); *COLOR,URINE YELLOW (YELLOW); *KETONES,URINE TRACE (NEGATIVE); *PROTEIN,URINE 2+ (NEGATIVE); *UROBILINOGEN,URINE 0.2 E.U./dl (NORMAL); LEUKOCYTE ESTERASE ,URINE 1+ (NEGATIVE); NITRITE, URINE NEGATIVE (NEGATIVE); UGLUCOSE NEGATIVE (NEGATIVE)
[2024-04-05 20:45] LABS: RBC,URINE 0-3 /HPF (0-3)
[2024-04-05 20:54] LABS: ALANINE AMINOTRANSFERASE 29 U/L (14-59); ALBUMIN 2.4 g/dL (3.4-5.0); ALKALINE PHOSPHATASE 65 U/L (50-136); ASPARTATE AMINOTRANSFERASE 40 U/L (15-37); BILIRUBIN,DIRECT 0.2 mg/dL (0.0-0.2); BILIRUBIN,TOTAL 0.6 mg/dL (0.2-1.0); CALCIUM 9.7 mg/dL (8.5-10.1); CARBON DIOXIDE 23 mmol/L (21-32); CHLORIDE 99 mmol/L (98-107); CREATININE 2.3 mg/dL (0.6-1.3); GLUCOSE 99 mg/dL (74-106); LIPASE 56 U/L (16-77); POTASSIUM 4.3 mmol/L (3.5-5.1); SODIUM SERUM 136 mmol/L (136-145); TOTAL PROTEIN, SERUM 8.6 g/dL (6.4-8.2); UREA NITROGEN, BLOOD 47 mg/dL (7-18)
[2024-04-05] MEDS: IV NS 1000 ML 1,000 ML IV ONE (21:00)
[2024-04-05] MEDS ORDERED: PIPERACILLIN/TAZO 4.5 GM VIAL IV ONE (21:41)
[2024-04-05] MEDS: PIPERACILLIN SODIUM/TAZOBACTAM 4.5 G in IV DEXTROSE 5% 50 ML IV ONE (21:52)
[2024-04-05] MEDS ORDERED: ASPI-1420 PO (21:53)
[2024-04-05] MEDS ORDERED: CALC500T53 (21:53)
[2024-04-05] MEDS ORDERED: ALBU8HFA4 (21:53)
[2024-04-05] MEDS ORDERED: OMEP40CA21 PO (21:53)
[2024-04-05] MEDS ORDERED: LORAZEPAM 2 MG/1 ML VIAL ONE (23:41)
[2024-04-06] MEDS: LORAZEPAM 2 MG/1 ML VIAL IV STA (00:03)
[2024-04-06] MEDS ORDERED: ONDANSETRON 4 MG/2 ML VIAL IV PRN (01:30)
[2024-04-06] MEDS ORDERED: PIPERACILLIN SODIUM/TAZOBACTAM 3.375 G in IV DEXTROSE 5% 50 ML IV SCH ×2 (01:30→12:00)
[2024-04-06] MEDS ORDERED: MORPHINE SULFATE 2 MG/1 ML DISP.SYRIN IV PRN (01:30)
[2024-04-06] MEDS ORDERED: VANCOMYCIN IV 200 ML ONE (02:38)
[2024-04-06] MEDS: VANCOMYCIN IV 1,000 MG in IV DEXTROSE 5% 250 ML IV ONE (02:51)
[2024-04-06] MEDS: IV LACTATED RINGERS SOLUTION 1,000 ML IV PRN (02:52)
[2024-04-06 06:00] VITALS: BP 112/49; TEMP 97.7; O2SAT 96
[2024-04-06 07:19] LABS: BASOPHILS % (AUTO) 0.3 % (0.0-2.0); EOSINOPHILS # (AUTO) 0.2 K/uL (0.0-0.7); EOSINOPHILS % (AUTO) 1.4 % (0.0-7.0); HEMATOCRIT 28.1 % (31.2-41.9); HEMOGLOBIN 9.1 g/dL (10.9-14.3); LYMPHOCYTES # (AUTO) 2.1 K/uL (0.8-4.8); LYMPHOCYTES % (AUTO) 18.3 % (20.5-51.5); MEAN CORPUSCULAR HGB CONC 32 g/dL (32.3-35.6); MEAN CORPUSCULAR VOLUME 90.3 fL (75.5-95.3); MONOCYTES # (AUTO) 1.3 K/uL (0.1-1.30); MONOCYTES % (AUTO) 11.4 % (0.0-11.0); NEUTROPHILS # (AUTO) 7.7 K/uL (1.8-8.9); NEUTROPHILS % (AUTO) 68.6 % (38.5-71.5); PLATELET COUNT (AUTO) 324 K/uL (179-408); RED BLOOD CELL COUNT(AUTO) 3.12 MIL/uL (3.63-4.92); RED CELL DISTRIBUTION WIDTH 16.3 % (12.3-17.7); WHITE BLOOD COUNT (AUTO) 11.3 K/uL (3.8-11.8)
[2024-04-06 07:28] LABS: ALANINE AMINOTRANSFERASE 17 U/L (14-59); ALKALINE PHOSPHATASE 49 U/L (50-136); ASPARTATE AMINOTRANSFERASE 22 U/L (15-37); BILIRUBIN,TOTAL 0.7 mg/dL (0.2-1.0); CALCIUM 8.9 mg/dL (8.5-10.1); CARBON DIOXIDE 24 mmol/L (21-32); CHLORIDE 104 mmol/L (98-107); CREATININE 2.1 mg/dL (0.6-1.3); GLUCOSE 84 mg/dL (74-106); PHOSPHOROUS 4.3 mg/dL (2.5-4.9); POTASSIUM 4.1 mmol/L (3.5-5.1); SODIUM SERUM 137 mmol/L (136-145); TOTAL PROTEIN, SERUM 7.3 g/dL (6.4-8.2); UREA NITROGEN, BLOOD 43 mg/dL (7-18)
[2024-04-06 07:34] LABS: DIFFERENTIAL COMMENT 1
[2024-04-06 07:36] VITALS: BP 125/69; TEMP 97.6; O2SAT 93
[2024-04-06] MEDS ORDERED: GLIM1TAB18 PO (10:24)
[2024-04-06] MEDS ORDERED: QUET25TA PO (10:24)
[2024-04-06] MEDS: PIPERACILLIN/TAZO 2.25 G in IV DEXTROSE 5% 50 ML IV SCH (10:25)
[2024-04-06] MEDS: PANTOPRAZOLE SODIUM 40 MG VIAL IV SCH (10:25)
[2024-04-06 11:54] VITALS: BP 121/65; TEMP 98.3; O2SAT 94
[2024-04-06] MEDS: VANCOMYCIN IV 1,250 MG in IV DEXTROSE 5% 250 ML IV SCH (14:03)
[2024-04-06 16:41] VITALS: BP 123/66; TEMP 98.1; O2SAT 95
[2024-04-06] MEDS: PIPERACILLIN SODIUM/TAZOBACTAM 3.375 G in IV DEXTROSE 5% 50 ML IV SCH (19:00)
[2024-04-06] MEDS: LORAZEPAM 2 MG/1 ML VIAL IV ONE (22:12)
[2024-04-06 22:28] VITALS: BP 128/68; TEMP 98.5; O2SAT 96
[2024-04-07 04:27] VITALS: BP 128/64; TEMP 98.3; O2SAT 94
[2024-04-07 06:00] VITALS: BP 129/61; TEMP 98.2; O2SAT 96
[2024-04-07] MEDS: BLOOD SUGAR DIAGNOSTIC 1 EACH STRIP VI SCH (12:00)
[2024-04-07] MEDS ORDERED: DEXTROSE 50% 50 ML DISP.SYRIN IV PRN (12:00)
[2024-04-07 12:42] VITALS: BP 123/57; TEMP 97.7; O2SAT 99
[2024-04-07 15:28] VITALS: BP 149/78; TEMP 97.6; O2SAT 97
[2024-04-07 18:21] VITALS: TEMP 99.3
[2024-04-07 20:25] VITALS: BP 150/75; TEMP 99.4; O2SAT 96
[2024-04-08] MEDS: PANTOPRAZOLE SODIUM 40 MG TABLET.DR PO SCH (06:11)
[2024-04-08 06:20] VITALS: BP 141/80; TEMP 98.3; O2SAT 96
[2024-04-08 07:03] LABS: ALANINE AMINOTRANSFERASE 12 U/L (14-59); ALBUMIN 2.2 g/dL (3.4-5.0); ALKALINE PHOSPHATASE 55 U/L (50-136); ASPARTATE AMINOTRANSFERASE 11 U/L (15-37); CALCIUM 9.6 mg/dL (8.5-10.1); CARBON DIOXIDE 23 mmol/L (21-32); CHLORIDE 100 mmol/L (98-107); CREATININE 1.8 mg/dL (0.6-1.3); GLUCOSE 128 mg/dL (74-106); MAGNESIUM 1.6 mg/dL (1.8-2.4); PHOSPHOROUS 4.4 mg/dL (2.5-4.9); POTASSIUM 4.4 mmol/L (3.5-5.1); SODIUM SERUM 135 mmol/L (136-145); UREA NITROGEN, BLOOD 22 mg/dL (7-18)
[2024-04-08 07:07] LABS: BASOPHILS # (AUTO) 0.1 K/UL (0.0-0.2); BASOPHILS % (AUTO) 0.4 % (0.0-2.0); EOSINOPHILS # (AUTO) 0.2 K/uL (0.0-0.7); EOSINOPHILS % (AUTO) 1.5 % (0.0-7.0); HEMOGLOBIN 9.9 g/dL (10.9-14.3); LYMPHOCYTES # (AUTO) 2.1 K/uL (0.8-4.8); LYMPHOCYTES % (AUTO) 12.5 % (20.5-51.5); MEAN CORPUSCULAR HEMOGLOBIN 29.4 uug (24.7-32.8); MEAN CORPUSCULAR HGB CONC 33 g/dL (32.3-35.6); MEAN CORPUSCULAR VOLUME 89.4 fL (75.5-95.3); MONOCYTES # (AUTO) 1.6 K/uL (0.1-1.30); MONOCYTES % (AUTO) 9.6 % (0.0-11.0); NEUTROPHILS # (AUTO) 12.5 K/uL (1.8-8.9); PLATELET COUNT (AUTO) 438 K/uL (179-408); RED BLOOD CELL COUNT(AUTO) 3.36 MIL/uL (3.63-4.92); WHITE BLOOD COUNT (AUTO) 16.4 K/uL (3.8-11.8)
[2024-04-08 07:10] LABS: DIFFERENTIAL COMMENT 1
[2024-04-08] MEDS ORDERED: IOHEXOL 300MG/ML 100 ML INFUS..BTL ONE (07:24)
[2024-04-08] MEDS ORDERED: IV NORMAL SALINE 250 ML IV ONE (07:24)
[2024-04-08] MEDS ORDERED: SWABABLE VALVE TRANSFER SET EA MC ONE (07:24)
[2024-04-08 07:52] VITALS: BP 135/74; TEMP 99; O2SAT 96
[2024-04-08] MEDS: MAGNESIUM SULFATE/D5W 100 ML IV SCH (09:40)
[2024-04-08] MEDS: methylPREDNISolone SOD SUCC 125 MG/2 ML VIAL IV ONE (10:52)
[2024-04-08 12:00] VITALS: BP 141/79; TEMP 98.2; O2SAT 96
[2024-04-08] MEDS: INSULIN REGULAR, HUMAN 300 UNIT/3 ML VIAL SQ PRN (12:11)
[2024-04-08 15:23] VITALS: BP 115/57; TEMP 97.9; O2SAT 96
[2024-04-08 20:00] VITALS: BP 133/76; TEMP 98.2; O2SAT 92
[2024-04-09 06:00] VITALS: BP 140/67; TEMP 97.4; O2SAT 95
[2024-04-09 07:45] LABS: BASOPHILS # (AUTO) 0.1 K/UL (0.0-0.2); BASOPHILS % (AUTO) 0.4 % (0.0-2.0); HEMATOCRIT 29.7 % (31.2-41.9); HEMOGLOBIN 9.9 g/dL (10.9-14.3); LYMPHOCYTES # (AUTO) 1.1 K/uL (0.8-4.8); LYMPHOCYTES % (AUTO) 6.8 % (20.5-51.5); MEAN CORPUSCULAR HEMOGLOBIN 30.3 uug (24.7-32.8); MEAN CORPUSCULAR HGB CONC 33 g/dL (32.3-35.6); MEAN CORPUSCULAR VOLUME 91.1 fL (75.5-95.3); MONOCYTES # (AUTO) 0.4 K/uL (0.1-1.30); MONOCYTES % (AUTO) 2.6 % (0.0-11.0); NEUTROPHILS # (AUTO) 14.9 K/uL (1.8-8.9); NEUTROPHILS % (AUTO) 90.2 % (38.5-71.5); PLATELET COUNT (AUTO) 433 K/uL (179-408); RED BLOOD CELL COUNT(AUTO) 3.26 MIL/uL (3.63-4.92); RED CELL DISTRIBUTION WIDTH 16.5 % (12.3-17.7); WHITE BLOOD COUNT (AUTO) 16.5 K/uL (3.8-11.8)
[2024-04-09 08:00] LABS: DIFFERENTIAL COMMENT 1
[2024-04-09 08:15] LABS: CALCIUM 9.6 mg/dL (8.5-10.1); CARBON DIOXIDE 24 mmol/L (21-32); CHLORIDE 101 mmol/L (98-107); CREATININE 1.9 mg/dL (0.6-1.3); GLUCOSE 205 mg/dL (74-106); MAGNESIUM 1.8 mg/dL (1.8-2.4); POTASSIUM 4.4 mmol/L (3.5-5.1); SODIUM SERUM 135 mmol/L (136-145); UREA NITROGEN, BLOOD 26 mg/dL (7-18)
[2024-04-09 12:00] VITALS: BP 120/77; TEMP 97.4; O2SAT 96
[2024-04-09 15:31] VITALS: BP 138/88; TEMP 97.4; O2SAT 95
[2024-04-09] MEDS: PIPERACILLIN SODIUM/TAZOBACTAM 3.375 G in IV DEXTROSE 5% 100 ML IV SCH (15:36)
[2024-04-09 22:00] VITALS: BP 141/79; TEMP 97.8; O2SAT 95
[2024-04-10 04:19] VITALS: BP 162/82; TEMP 98.9; O2SAT 98
[2024-04-10 06:00] VITALS: BP 126/65; TEMP 97.6; O2SAT 93
[2024-04-10 07:24] LABS: BASOPHILS # (AUTO) 0.1 K/UL (0.0-0.2); BASOPHILS % (AUTO) 0.5 % (0.0-2.0); EOSINOPHILS # (AUTO) 0.1 K/uL (0.0-0.7); EOSINOPHILS % (AUTO) 0.7 % (0.0-7.0); HEMATOCRIT 29.9 % (31.2-41.9); HEMOGLOBIN 9.7 g/dL (10.9-14.3); LYMPHOCYTES # (AUTO) 1.7 K/uL (0.8-4.8); LYMPHOCYTES % (AUTO) 11.9 % (20.5-51.5); MEAN CORPUSCULAR HEMOGLOBIN 28.9 uug (24.7-32.8); MEAN CORPUSCULAR HGB CONC 33 g/dL (32.3-35.6); MEAN CORPUSCULAR VOLUME 89.1 fL (75.5-95.3); MONOCYTES % (AUTO) 7.1 % (0.0-11.0); NEUTROPHILS # (AUTO) 11.6 K/uL (1.8-8.9); NEUTROPHILS % (AUTO) 79.8 % (38.5-71.5); PLATELET COUNT (AUTO) 446 K/uL (179-408); RED BLOOD CELL COUNT(AUTO) 3.36 MIL/uL (3.63-4.92); RED CELL DISTRIBUTION WIDTH 16.5 % (12.3-17.7); WHITE BLOOD COUNT (AUTO) 14.5 K/uL (3.8-11.8)
[2024-04-10 07:33] LABS: DIFFERENTIAL COMMENT 1
[2024-04-10 07:41] LABS: ALANINE AMINOTRANSFERASE 8 U/L (14-59); ALBUMIN 2.1 g/dL (3.4-5.0); ALKALINE PHOSPHATASE 48 U/L (50-136); ASPARTATE AMINOTRANSFERASE 17 U/L (15-37); BILIRUBIN,TOTAL 0.6 mg/dL (0.2-1.0); CALCIUM 9.5 mg/dL (8.5-10.1); CARBON DIOXIDE 25 mmol/L (21-32); CHLORIDE 102 mmol/L (98-107); CREATININE 1.9 mg/dL (0.6-1.3); GLUCOSE 104 mg/dL (74-106); MAGNESIUM 1.9 mg/dL (1.8-2.4); PHOSPHOROUS 4.5 mg/dL (2.5-4.9); POTASSIUM 3.5 mmol/L (3.5-5.1); SODIUM SERUM 128 mmol/L (136-145); TOTAL PROTEIN, SERUM 7.4 g/dL (6.4-8.2); UREA NITROGEN, BLOOD 27 mg/dL (7-18)
[2024-04-10 08:00] VITALS: BP 146/76; TEMP 97.6; O2SAT 97
[2024-04-10 15:48] VITALS: BP 127/83; TEMP 97.8; O2SAT 97
[2024-04-10 16:52] LABS: CALCIUM 9.7 mg/dL (8.5-10.1); CARBON DIOXIDE 25 mmol/L (21-32); CHLORIDE 102 mmol/L (98-107); CREATININE 1.9 mg/dL (0.6-1.3); GLUCOSE 92 mg/dL (74-106); MAGNESIUM 1.9 mg/dL (1.8-2.4); PHOSPHOROUS 3.9 mg/dL (2.5-4.9); POTASSIUM 3.7 mmol/L (3.5-5.1); SODIUM SERUM 138 mmol/L (136-145); UREA NITROGEN, BLOOD 28 mg/dL (7-18); URIC ACID 7.3 mg/dL (2.6-6.0)
[2024-04-10 17:02] LABS: THYROID STIMULATING HORMONE 3.733 mIU/mL (0.358-3.740)
[2024-04-10 20:00] VITALS: BP 130/72; TEMP 98.5; O2SAT 96
[2024-04-11 06:00] VITALS: BP 153/8; TEMP 97.8; O2SAT 94
[2024-04-11 07:29] LABS: BASOPHILS # (AUTO) 0.1 K/UL (0.0-0.2); BASOPHILS % (AUTO) 0.6 % (0.0-2.0); EOSINOPHILS # (AUTO) 0.2 K/uL (0.0-0.7); EOSINOPHILS % (AUTO) 2.6 % (0.0-7.0); HEMATOCRIT 29.2 % (31.2-41.9); HEMOGLOBIN 9.6 g/dL (10.9-14.3); LYMPHOCYTES # (AUTO) 1.7 K/uL (0.8-4.8); LYMPHOCYTES % (AUTO) 19.2 % (20.5-51.5); MEAN CORPUSCULAR HEMOGLOBIN 29.5 uug (24.7-32.8); MEAN CORPUSCULAR HGB CONC 33 g/dL (32.3-35.6); MEAN CORPUSCULAR VOLUME 89.8 fL (75.5-95.3); MONOCYTES # (AUTO) 0.9 K/uL (0.1-1.30); MONOCYTES % (AUTO) 9.6 % (0.0-11.0); NEUTROPHILS # (AUTO) 6.2 K/uL (1.8-8.9); PLATELET COUNT (AUTO) 444 K/uL (179-408); RED BLOOD CELL COUNT(AUTO) 3.26 MIL/uL (3.63-4.92); RED CELL DISTRIBUTION WIDTH 16.5 % (12.3-17.7); WHITE BLOOD COUNT (AUTO) 9.1 K/uL (3.8-11.8)
[2024-04-11 07:30] LABS: DIFFERENTIAL COMMENT 1
[2024-04-11 07:46] LABS: CALCIUM 9.3 mg/dL (8.5-10.1); CARBON DIOXIDE 26 mmol/L (21-32); CHLORIDE 103 mmol/L (98-107); CREATININE 1.8 mg/dL (0.6-1.3); GLUCOSE 83 mg/dL (74-106); MAGNESIUM 1.7 mg/dL (1.8-2.4); PHOSPHOROUS 4.2 mg/dL (2.5-4.9); POTASSIUM 3.9 mmol/L (3.5-5.1); SODIUM SERUM 138 mmol/L (136-145); UREA NITROGEN, BLOOD 28 mg/dL (7-18)
[2024-04-11 08:18] VITALS: BP 151/80; TEMP 97.3; O2SAT 97
[2024-04-11] MEDS: MAGNESIUM SULFATE/D5W 100 ML IV SCH (09:34)
[2024-04-11 12:00] VITALS: BP 127/83; TEMP 97.6; O2SAT 97
[2024-04-11 16:22] VITALS: BP 143/79; TEMP 96; O2SAT 97
[2024-04-12] MEDS: IV D5LR 1,000 ML IV PRN (00:29)
[2024-04-12 06:35] LABS: BASOPHILS # (AUTO) 0.1 K/UL (0.0-0.2); BASOPHILS % (AUTO) 0.8 % (0.0-2.0); EOSINOPHILS # (AUTO) 0.4 K/uL (0.0-0.7); EOSINOPHILS % (AUTO) 4.3 % (0.0-7.0); HEMATOCRIT 30.8 % (31.2-41.9); HEMOGLOBIN 9.9 g/dL (10.9-14.3); LYMPHOCYTES # (AUTO) 1.6 K/uL (0.8-4.8); LYMPHOCYTES % (AUTO) 17.5 % (20.5-51.5); MEAN CORPUSCULAR HEMOGLOBIN 28.6 uug (24.7-32.8); MEAN CORPUSCULAR HGB CONC 32 g/dL (32.3-35.6); MEAN CORPUSCULAR VOLUME 88.6 fL (75.5-95.3); MONOCYTES # (AUTO) 0.8 K/uL (0.1-1.30); NEUTROPHILS # (AUTO) 6.2 K/uL (1.8-8.9); NEUTROPHILS % (AUTO) 68.4 % (38.5-71.5); PLATELET COUNT (AUTO) 436 K/uL (179-408); RED BLOOD CELL COUNT(AUTO) 3.48 MIL/uL (3.63-4.92); RED CELL DISTRIBUTION WIDTH 16.7 % (12.3-17.7); WHITE BLOOD COUNT (AUTO) 9.1 K/uL (3.8-11.8)
[2024-04-12 06:51] LABS: DIFFERENTIAL COMMENT 1
[2024-04-12 07:01] LABS: CALCIUM 9.3 mg/dL (8.5-10.1); CARBON DIOXIDE 26 mmol/L (21-32); CHLORIDE 102 mmol/L (98-107); CREATININE 1.8 mg/dL (0.6-1.3); GLUCOSE 110 mg/dL (74-106); MAGNESIUM 1.7 mg/dL (1.8-2.4); POTASSIUM 3.5 mmol/L (3.5-5.1); SODIUM SERUM 136 mmol/L (136-145); UREA NITROGEN, BLOOD 24 mg/dL (7-18)
[2024-04-12 11:40] VITALS: BP 149/87; TEMP 98.4; O2SAT 96
[2024-04-12] MEDS: CEFTRIAXONE 2 G in IV DEXTROSE 5% 100 ML IV SCH (15:57)
[2024-04-12 16:00] VITALS: BP 144/84; TEMP 98.1; O2SAT 97
[2024-04-12] MEDS: MAGNESIUM SULFATE/D5W 100 ML IV SCH (16:50)
[2024-04-12] MEDS ORDERED: DEXTROSE 50% 50 ML DISP.SYRIN IV PRN (17:00)
[2024-04-12] MEDS: BLOOD SUGAR DIAGNOSTIC 1 EACH STRIP VI SCH (17:09)
[2024-04-12 20:15] VITALS: BP 136/67; TEMP 97.4; O2SAT 92
[2024-04-12] MEDS: INSULIN REGULAR, HUMAN 300 UNIT/3 ML VIAL SQ PRN (21:13)
[2024-04-13 01:19] VITALS: BP 143/95; O2SAT 95
[2024-04-13 04:00] VITALS: BP 129/67; TEMP 98.2; O2SAT 94
[2024-04-13 07:18] LABS: BASOPHILS # (AUTO) 0.1 K/UL (0.0-0.2); EOSINOPHILS # (AUTO) 0.4 K/uL (0.0-0.7); EOSINOPHILS % (AUTO) 3.6 % (0.0-7.0); HEMATOCRIT 31.6 % (31.2-41.9); HEMOGLOBIN 10.5 g/dL (10.9-14.3); LYMPHOCYTES # (AUTO) 2.3 K/uL (0.8-4.8); LYMPHOCYTES % (AUTO) 18.5 % (20.5-51.5); MEAN CORPUSCULAR HEMOGLOBIN 30.1 uug (24.7-32.8); MEAN CORPUSCULAR HGB CONC 33 g/dL (32.3-35.6); MEAN CORPUSCULAR VOLUME 90.5 fL (75.5-95.3); MONOCYTES % (AUTO) 8.2 % (0.0-11.0); NEUTROPHILS # (AUTO) 8.6 K/uL (1.8-8.9); NEUTROPHILS % (AUTO) 68.7 % (38.5-71.5); PLATELET COUNT (AUTO) 460 K/uL (179-408); RED CELL DISTRIBUTION WIDTH 16.5 % (12.3-17.7); WHITE BLOOD COUNT (AUTO) 12.5 K/uL (3.8-11.8)
[2024-04-13 07:25] LABS: DIFFERENTIAL COMMENT 1
[2024-04-13 07:29] LABS: ALANINE AMINOTRANSFERASE 25 U/L (14-59); ALBUMIN 2.4 g/dL (3.4-5.0); ALKALINE PHOSPHATASE 52 U/L (50-136); ASPARTATE AMINOTRANSFERASE 21 U/L (15-37); BILIRUBIN,TOTAL 0.4 mg/dL (0.2-1.0); CALCIUM 9.4 mg/dL (8.5-10.1); CARBON DIOXIDE 26 mmol/L (21-32); CHLORIDE 101 mmol/L (98-107); CREATININE 1.7 mg/dL (0.6-1.3); GLUCOSE 138 mg/dL (74-106); PHOSPHOROUS 4.5 mg/dL (2.5-4.9); POTASSIUM 3.8 mmol/L (3.5-5.1); SODIUM SERUM 137 mmol/L (136-145); TOTAL PROTEIN, SERUM 7.7 g/dL (6.4-8.2); UREA NITROGEN, BLOOD 19 mg/dL (7-18)
[2024-04-13 12:02] VITALS: BP 156/92; TEMP 97.8; O2SAT 96
[2024-04-13 15:44] VITALS: BP 137/75; TEMP 98; O2SAT 96
[2024-04-13 20:01] VITALS: BP 168/91; TEMP 98; O2SAT 95
[2024-04-13] MEDS: IV D5 1/2 NS 1000 ML 1,000 ML IV PRN (20:21)
[2024-04-13] MEDS: hydrALAZINE HCL 20 MG/1 ML VIAL IV PRN (20:35)
[2024-04-14 06:03] VITALS: BP 149/72; TEMP 98.2; O2SAT 95
[2024-04-14 07:09] LABS: CALCIUM 9.1 mg/dL (8.5-10.1); CARBON DIOXIDE 27 mmol/L (21-32); CHLORIDE 100 mmol/L (98-107); CREATININE 1.5 mg/dL (0.6-1.3); GLUCOSE 147 mg/dL (74-106); MAGNESIUM 1.7 mg/dL (1.8-2.4); PHOSPHOROUS 3.5 mg/dL (2.5-4.9); POTASSIUM 3.4 mmol/L (3.5-5.1); SODIUM SERUM 136 mmol/L (136-145); UREA NITROGEN, BLOOD 13 mg/dL (7-18)
[2024-04-14 07:12] LABS: BASOPHILS # (AUTO) 0.1 K/UL (0.0-0.2); BASOPHILS % (AUTO) 0.6 % (0.0-2.0); DIFFERENTIAL COMMENT 0; EOSINOPHILS # (AUTO) 0.3 K/uL (0.0-0.7); EOSINOPHILS % (AUTO) 2.9 % (0.0-7.0); HEMATOCRIT 31.4 % (31.2-41.9); HEMOGLOBIN 10.2 g/dL (10.9-14.3); LYMPHOCYTES # (AUTO) 1.6 K/uL (0.8-4.8); LYMPHOCYTES % (AUTO) 14.1 % (20.5-51.5); MEAN CORPUSCULAR HEMOGLOBIN 28.6 uug (24.7-32.8); MEAN CORPUSCULAR HGB CONC 33 g/dL (32.3-35.6); MEAN CORPUSCULAR VOLUME 88.2 fL (75.5-95.3); MONOCYTES % (AUTO) 9.1 % (0.0-11.0); NEUTROPHILS # (AUTO) 8.3 K/uL (1.8-8.9); NEUTROPHILS % (AUTO) 73.3 % (38.5-71.5); PLATELET COUNT (AUTO) 393 K/uL (179-408); RED BLOOD CELL COUNT(AUTO) 3.56 MIL/uL (3.63-4.92); WHITE BLOOD COUNT (AUTO) 11.3 K/uL (3.8-11.8)
[2024-04-14 07:55] VITALS: BP 131/66; TEMP 98.4; O2SAT 94
[2024-04-14] MEDS: POTASSIUM CHLORIDE 50 ML IV SCH (10:01)
[2024-04-14] MEDS: MAGNESIUM SULFATE/D5W 100 ML IV SCH (10:01)
[2024-04-14 11:36] VITALS: BP 147/86; TEMP 97.6; O2SAT 92
[2024-04-14 15:16] VITALS: BP 139/67; TEMP 98.4; O2SAT 99
[2024-04-14 20:00] VITALS: BP 144/69; TEMP 97.6
[2024-04-14] MEDS: LORAZEPAM 1 MG TABLET PO SCH (20:59)
[2024-04-15 06:00] VITALS: BP 157/57; TEMP 97.6; O2SAT 98
[2024-04-15 07:12] LABS: BASOPHILS # (AUTO) 0.1 K/UL (0.0-0.2); BASOPHILS % (AUTO) 0.9 % (0.0-2.0); EOSINOPHILS # (AUTO) 0.4 K/uL (0.0-0.7); EOSINOPHILS % (AUTO) 3.6 % (0.0-7.0); HEMATOCRIT 30.7 % (31.2-41.9); HEMOGLOBIN 10.1 g/dL (10.9-14.3); LYMPHOCYTES # (AUTO) 1.7 K/uL (0.8-4.8); LYMPHOCYTES % (AUTO) 16.4 % (20.5-51.5); MEAN CORPUSCULAR HEMOGLOBIN 29.8 uug (24.7-32.8); MEAN CORPUSCULAR HGB CONC 33 g/dL (32.3-35.6); MONOCYTES # (AUTO) 1.1 K/uL (0.1-1.30); MONOCYTES % (AUTO) 10.6 % (0.0-11.0); NEUTROPHILS # (AUTO) 6.9 K/uL (1.8-8.9); NEUTROPHILS % (AUTO) 68.5 % (38.5-71.5); PLATELET COUNT (AUTO) 370 K/uL (179-408); RED BLOOD CELL COUNT(AUTO) 3.37 MIL/uL (3.63-4.92); RED CELL DISTRIBUTION WIDTH 16.8 % (12.3-17.7); WHITE BLOOD COUNT (AUTO) 10.1 K/uL (3.8-11.8)
[2024-04-15 07:23] LABS: CARBON DIOXIDE 28 mmol/L (21-32); CHLORIDE 102 mmol/L (98-107); CREATININE 1.4 mg/dL (0.6-1.3); DIFFERENTIAL COMMENT 1; GLUCOSE 137 mg/dL (74-106); MAGNESIUM 1.8 mg/dL (1.8-2.4); PHOSPHOROUS 3.2 mg/dL (2.5-4.9); POTASSIUM 3.6 mmol/L (3.5-5.1); SODIUM SERUM 138 mmol/L (136-145); UREA NITROGEN, BLOOD 12 mg/dL (7-18)
[2024-04-15] MEDS ORDERED: AMOX-430 PO (10:57)
[2024-04-15 11:10] VITALS: BP 138/60; TEMP 97.9; O2SAT 94
== END 2024-04-15 17:45 | disposition home or self-care (01) | DRG 391 ==
LOC: ER 19:18 → TELE3 22:10 → MEDSURG3 04-07 12:15
PROVIDERS: ADMIT Nurse Practitioner Acute Care
PROC: 05HC33Z Insertion of Infusion Device into Left Basilic Vein, Percutaneous Approach (ICD-10-PCS; principal; 2024-04-07)
PROC: 05HB33Z Insertion of Infusion Device into Right Basilic Vein, Percutaneous Approach (ICD-10-PCS; 2024-04-12)
DX: K57.20 Diverticulitis of large intestine with perforation and abscess without bleeding (principal); N17.0 Acute kidney failure with tubular necrosis; N39.0 Urinary tract infection, site not specified; K81.0 Acute cholecystitis; I12.9 Hypertensive chronic kidney disease with stage 1 through stage 4 chronic kidney disease, or unspecified chronic kidney disease; N18.9 Chronic kidney disease, unspecified; E11.22 Type 2 diabetes mellitus with diabetic chronic kidney disease; E78.5 Hyperlipidemia, unspecified; E03.9 Hypothyroidism, unspecified; Z79.84 Long term (current) use of oral hypoglycemic drugs; Z79.82 Long term (current) use of aspirin; Z79.899 Other long term (current) drug therapy; E66.9 Obesity, unspecified; Z68.32 Body mass index [BMI] 32.0-32.9, adult; Z71.3 Dietary counseling and surveillance; N20.0 Calculus of kidney; D64.9 Anemia, unspecified; K44.9 Diaphragmatic hernia without obstruction or gangrene; M89.8X9 Other specified disorders of bone, unspecified site; Z96.652 Presence of left artificial knee joint
CPT/HCPCS: 36415; 71260; 73501; 82533; 83605; 83690; 83735; 84100; 84443; 84550; 85025; 85610; 87040; A4663; A9150; G0378; J0360; J0696; J1815; J2060; J2470; J2543; J2919; J3370; J3475; J3480; J7040; J7050; J7120; Q9967